=== PATIENT | male | born 1990 | race Asian ===

== ENCOUNTER 2025-01-26 05:17 | Inpatient (IN) | payer MEDICAID ==
[~2025-01-26] VITALS: Ht 177.8 cm; Wt 90.2 kg
[2025-01-26 05:59] LABS: BASOPHILS % (AUTO) 0.4 % (0.0-2.0); EOSINOPHILS % (AUTO) 8.2 % (1.0-6.0); HEMOGLOBIN 15.2 g/dL (13.5-17.5); LYMPHOCYTES # (AUTO) 1.7 K/uL (1.0-4.8); LYMPHOCYTES % (AUTO) 25.3 % (22.0-44.0); MEAN CORPUSCULAR HEMOGLOBIN 25.8 pg (26.0-34.0); MEAN CORPUSCULAR HGB CONC 32.3 G/dL (31.0-37.0); MEAN CORPUSCULAR VOLUME 80 fL (80-100); MONOCYTES # (AUTO) 0.6 K/uL (0.1-1.0); MONOCYTES % (AUTO) 8.3 % (2.0-9.0); NEUTROPHILS # (AUTO) 3.9 K/uL (1.8-7.7); NEUTROPHILS % (AUTO) 57.8 % (40.0-70.0); PLATELET COUNT (AUTO) 247 K/uL (150-450); RED BLOOD CELL COUNT(AUTO) 5.88 MIL/uL (4.50-5.90); RED CELL DISTRIBUTION WIDTH 14.7 % (11.5-14.5); WHITE BLOOD COUNT (AUTO) 6.7 K/uL (4.5-11.0)
[2025-01-26 06:13] LABS: ALBUMIN 3.4 g/dL (3.4-5.0); BILIRUBIN,DIRECT 0.1 mg/dL (0.00-0.20); BILIRUBIN,TOTAL 0.4 mg/dL (0.1-1.0); TOTAL PROTEIN, SERUM 6.8 g/dL (6.4-8.2)
[2025-01-26 06:21] LABS: ANION GAP 6 mmol/L (8-16); CALCIUM, TOTAL 8.4 mg/dL (8.8-10.5); CARBON DIOXIDE 30 mmol/L (22-29); CHLORIDE 104 mmol/L (98-107); CREATININE 1.08 mg/dL (0.60-1.30); GLOMERULAR FILTR. RATE CALC > 60 mL/min (>60); GLUCOSE,RANDOM 137 mg/dL (70-110); POTASSIUM 3.9 mmol/L (3.5-5.1); SODIUM SERUM 140 mmol/L (136-145); UREA NITROGEN, BLOOD 13 mg/dL (7-18)
[2025-01-26 06:22] LABS: LIPASE 145 U/L (16-77)
[2025-01-26 06:23] LABS: APPEARANCE,URINE CLEAR (CLEAR); BILIRUBIN,URINE NEGATIVE (NEGATIVE); COLOR,URINE LIGHT YELLOW (YELLOW); GLUCOSE, URINE (UA) NEGATIVE (NEGATIVE); KETONES,URINE NEGATIVE (NEGATIVE); LEUKOCYTE ESTERASE ,URINE NEGATIVE (NEGATIVE); NITRATE,URINE NEGATIVE (NEGATIVE); OCCULT BLOOD,URINE NEGATIVE (NEGATIVE); PH,URINE 5.5 (5.0-8.0); PROTEIN,URINE NEGATIVE (NEGATIVE); SPECIFIC GRAVITIY, URINE 1.028 (1.003-1.030); UROBILINOGEN,URINE <=1.0 mg/dL (<=1.0)
[2025-01-26 07:20] LABS: BACTERIA,URINE None Seen /HPF (None Seen); RBC,URINE None Seen /HPF (0-2); SQUAMOUS EPITHELIAL CELL,UR None Seen /LPF (None Seen); WBC,URINE None Seen /HPF (0-5)
[2025-01-26] MEDS: SODIUM CHLORIDE 0.9% 1,000 ML IV ONE ×2 (08:13→08:47)
[2025-01-26] MEDS: KETOROLAC TROMETHAMINE 30 MG/ML VIAL IVP ONE (08:14)
[2025-01-26] MEDS ORDERED: ONDANSETRON HCL 4 MG/2 ML VIAL IVP PRN (08:30)
[2025-01-26] MEDS ORDERED: MORPHINE SULFATE 2 MG/ML SYRINGE IVP PRN (08:30)
[2025-01-26] MEDS ORDERED: ACETAMINOPHEN 325 MG TABLET PO PRN (08:30)
[2025-01-26] MEDS: DOCUSATE SODIUM 100 MG CAPSULE PO SCH (08:36)
[2025-01-26] MEDS: PANTOPRAZOLE SODIUM 40 MG/VIAL IVP SCH (08:47)
[2025-01-26] MEDS ORDERED: IOHEXOL 350 MG/ML 100 ML VIAL ONE (09:08)
[2025-01-26] MEDS ORDERED: IOHEXOL 9 MG/ML 500 ML BOTTLE ONE ×2 (09:21→09:23)
[2025-01-26] MEDS: DIATRIZOATE MEGLU/SOD 660/100 MG/ML 120 ML BOTTLE PO ONE (09:37)
[2025-01-26] MEDS: IOHEXOL 9 MG/ML 500 ML BOTTLE PO ONE (09:39)
[2025-01-26 11:30] VITALS: BP 108/81; PULSE 65; RESP 19; TEMP 97.9; O2SAT 97; O2SAT 98
[2025-01-26 12:00] VITALS: BP 108/81; PULSE 65; RESP 19; TEMP 97.9; O2SAT 98
[2025-01-26 15:50] VITALS: BP 114/79; PULSE 70; RESP 19; TEMP 98; O2SAT 98
[2025-01-26 20:06] VITALS: BP 139/96; PULSE 68; RESP 19; TEMP 98.1; O2SAT 96
[2025-01-27 04:44] VITALS: BP 134/90; PULSE 59; RESP 18; TEMP 97.5; O2SAT 95
[2025-01-27 07:30] LABS: HEMATOCRIT 42.2 % (41-53); HEMOGLOBIN 13.6 g/dL (13.5-17.5); MEAN CORPUSCULAR HEMOGLOBIN 25.8 pg (26.0-34.0); MEAN CORPUSCULAR HGB CONC 32.3 G/dL (31.0-37.0); MEAN CORPUSCULAR VOLUME 80 fL (80-100); PLATELET COUNT (AUTO) 228 K/uL (150-450); RED BLOOD CELL COUNT(AUTO) 5.28 MIL/uL (4.50-5.90); RED CELL DISTRIBUTION WIDTH 14.9 % (11.5-14.5); WHITE BLOOD COUNT (AUTO) 6.1 K/uL (4.5-11.0)
[2025-01-27 07:48] LABS: ALANINE AMINOTRANSFERASE 46 U/L (12-78); ALBUMIN 3.2 g/dL (3.4-5.0); ALKALINE PHOSPHATASE 68 U/L (46-116); ANION GAP 6 mmol/L (8-16); ASPARTATE AMINOTRANSFERASE 34 U/L (15-37); BILIRUBIN,TOTAL 0.7 mg/dL (0.1-1.0); CALCIUM, TOTAL 8.5 mg/dL (8.8-10.5); CARBON DIOXIDE 26 mmol/L (22-29); CHLORIDE 106 mmol/L (98-107); CREATININE 0.95 mg/dL (0.60-1.30); GLOMERULAR FILTR. RATE CALC > 60 mL/min (>60); GLUCOSE,RANDOM 91 mg/dL (70-110); SODIUM SERUM 138 mmol/L (136-145); TOTAL PROTEIN, SERUM 6.3 g/dL (6.4-8.2); UREA NITROGEN, BLOOD 8 mg/dL (7-18)
[2025-01-27 08:09] VITALS: BP 120/79; PULSE 62; RESP 18; TEMP 97.9; O2SAT 96
[2025-01-27 09:00] LABS: BAND NEUTROPHILS % (MANUAL) 3 % (0-5); LYMPHOCYTES % (MANUAL) 31 % (22-44); MONOCYTES % (MANUAL) 4 % (2-9); SEGMENTED NEUTROPHILS % 62 % (40-70); TOTAL CELLS COUNTED 100
[2025-01-27 09:01] LABS: RBC MORPHOLOGY COMMENT NORMAL RBC MORPH
== END 2025-01-27 11:15 | disposition home or self-care (01) | DRG 282 ==
LOC: EMS 05:17 → EDH 08:20 → 6S 11:50
PROVIDERS: ADMIT Internal Medicine; ATTEND Internal Medicine
DX: K85.90 Acute pancreatitis without necrosis or infection, unspecified (principal); R18.8 Other ascites; K52.9 Noninfective gastroenteritis and colitis, unspecified; F10.10 Alcohol abuse, uncomplicated; F14.90 Cocaine use, unspecified, uncomplicated; F15.10 Other stimulant abuse, uncomplicated; Y90.1 Blood alcohol level of 20-39 mg/100 ml; Z82.49 Family history of ischemic heart disease and other diseases of the circulatory system; Z83.3 Family history of diabetes mellitus; Z88.2 Allergy status to sulfonamides; Z88.3 Allergy status to other anti-infective agents
CPT/HCPCS: 74176; 80048; 80053; 80076; 81001; 83690; 85025; 96361; 96374; 99285; G0378; G0480; J1885; J2470; J7030; 36415-L1; 36415-TC

== ENCOUNTER 2025-02-06 21:05 | Emergency (ER) | payer MEDICAID ==
[~2025-02-06] VITALS: Ht 177.8 cm; Wt 86.4 kg
[2025-02-07] MEDS: HYDROCODONE/ACETAMINOPHEN 5-325 MG TABLET PO ONE (01:29)
[2025-02-07] MEDS: IBUPROFEN 800 MG TABLET PO ONE (01:29)
[2025-02-07] MEDS: COLCHICINE 0.6 MG TABLET PO ONE ×2 (01:29→03:41)
[2025-02-07 01:53] LABS: BASOPHILS % (AUTO) 0.8 % (0.0-2.0); EOSINOPHILS % (AUTO) 12.7 % (1.0-6.0); HEMATOCRIT 42.8 % (41-53); HEMOGLOBIN 13.9 g/dL (13.5-17.5); LYMPHOCYTES # (AUTO) 1.9 K/uL (1.0-4.8); LYMPHOCYTES % (AUTO) 17.2 % (22.0-44.0); MEAN CORPUSCULAR HEMOGLOBIN 25.7 pg (26.0-34.0); MEAN CORPUSCULAR HGB CONC 32.6 G/dL (31.0-37.0); MEAN CORPUSCULAR VOLUME 79 fL (80-100); MONOCYTES # (AUTO) 0.8 K/uL (0.1-1.0); MONOCYTES % (AUTO) 7.6 % (2.0-9.0); NEUTROPHILS # (AUTO) 6.7 K/uL (1.8-7.7); NEUTROPHILS % (AUTO) 61.7 % (40.0-70.0); PLATELET COUNT (AUTO) 318 K/uL (150-450); RED BLOOD CELL COUNT(AUTO) 5.42 MIL/uL (4.50-5.90); RED CELL DISTRIBUTION WIDTH 14.5 % (11.5-14.5); WHITE BLOOD COUNT (AUTO) 10.9 K/uL (4.5-11.0)
[2025-02-07 01:59] LABS: ANION GAP 9 mmol/L (8-16); CARBON DIOXIDE 29 mmol/L (22-29); CHLORIDE 100 mmol/L (98-107); CREATININE 1.06 mg/dL (0.60-1.30); GLOMERULAR FILTR. RATE CALC > 60 mL/min (>60); GLUCOSE,RANDOM 95 mg/dL (70-110); POTASSIUM 3.9 mmol/L (3.5-5.1); SODIUM SERUM 138 mmol/L (136-145); UREA NITROGEN, BLOOD 10 mg/dL (7-18)
[2025-02-07 02:26] LABS: URIC ACID 8.9 mg/dL (2.6-7.2)
[2025-02-07] MEDS ORDERED: HYDR-4062 PO (02:49)
[2025-02-07] MEDS ORDERED: OMEP-148 PO (02:49)
[2025-02-07] MEDS ORDERED: IBUP-1554 PO (02:49)
[2025-02-07] MEDS ORDERED: COLC-3 PO (02:49)
[2025-02-07 03:51] VITALS: BP 129/69; PULSE 78; RESP 18; TEMP 97.3; O2SAT 98
== END 2025-02-07 04:48 | disposition home or self-care (01) ==
LOC: EMS 21:05
DX: M10.031 Idiopathic gout, right wrist (principal); Z88.1 Allergy status to other antibiotic agents; Z88.2 Allergy status to sulfonamides; Z79.899 Other long term (current) drug therapy
CPT/HCPCS: 80048; 84550; 85025; 99284

== ENCOUNTER 2025-02-12 07:55 | Emergency (ER) | payer MEDICAID ==
[~2025-02-12] VITALS: Ht 172.7 cm; Wt 81.8 kg
[~2025-02-12 07:55] MED LIST: COLC-3 PO; HYDR-4062 PO; IBUP-1554 PO; OMEP-148 PO
[2025-02-12 08:13] VITALS: TEMP 98.4
[2025-02-12 09:11] LABS: BASOPHILS % (AUTO) 0.5 % (0.0-2.0); EOSINOPHILS % (AUTO) 12.4 % (1.0-6.0); HEMOGLOBIN 14.9 g/dL (13.5-17.5); LYMPHOCYTES # (AUTO) 1.1 K/uL (1.0-4.8); LYMPHOCYTES % (AUTO) 19.1 % (22.0-44.0); MEAN CORPUSCULAR HEMOGLOBIN 25.5 pg (26.0-34.0); MEAN CORPUSCULAR HGB CONC 32.4 G/dL (31.0-37.0); MEAN CORPUSCULAR VOLUME 79 fL (80-100); MONOCYTES # (AUTO) 0.3 K/uL (0.1-1.0); MONOCYTES % (AUTO) 5.9 % (2.0-9.0); NEUTROPHILS # (AUTO) 3.5 K/uL (1.8-7.7); NEUTROPHILS % (AUTO) 62.1 % (40.0-70.0); PLATELET COUNT (AUTO) 373 K/uL (150-450); RED BLOOD CELL COUNT(AUTO) 5.84 MIL/uL (4.50-5.90); RED CELL DISTRIBUTION WIDTH 14.2 % (11.5-14.5); WHITE BLOOD COUNT (AUTO) 5.7 K/uL (4.5-11.0)
[2025-02-12 09:19] LABS: ANION GAP 9 mmol/L (8-16); CALCIUM, TOTAL 8.8 mg/dL (8.8-10.5); CARBON DIOXIDE 26 mmol/L (22-29); CHLORIDE 105 mmol/L (98-107); CREATININE 0.89 mg/dL (0.60-1.30); GLOMERULAR FILTR. RATE CALC > 60 mL/min (>60); GLUCOSE,RANDOM 109 mg/dL (70-110); POTASSIUM 4.1 mmol/L (3.5-5.1); SODIUM SERUM 140 mmol/L (136-145); UREA NITROGEN, BLOOD 14 mg/dL (7-18)
[2025-02-12 09:21] LABS: LIPASE 82 U/L (16-77); URIC ACID 8.4 mg/dL (2.6-7.2)
[2025-02-12 09:30] VITALS: BP 136/88; PULSE 69; RESP 16; O2SAT 98
[2025-02-12 09:42] LABS: APPEARANCE,URINE CLEAR (CLEAR); BILIRUBIN,URINE NEGATIVE (NEGATIVE); COLOR,URINE LIGHT YELLOW (YELLOW); GLUCOSE, URINE (UA) NEGATIVE (NEGATIVE); KETONES,URINE NEGATIVE (NEGATIVE); LEUKOCYTE ESTERASE ,URINE NEGATIVE (NEGATIVE); NITRATE,URINE NEGATIVE (NEGATIVE); OCCULT BLOOD,URINE NEGATIVE (NEGATIVE); PROTEIN,URINE NEGATIVE (NEGATIVE); UROBILINOGEN,URINE <=1.0 mg/dL (<=1.0)
[2025-02-12 09:47] LABS: RBC,URINE None Seen /HPF (0-2)
[2025-02-12 09:48] LABS: BACTERIA,URINE None Seen /HPF (None Seen); WBC,URINE None Seen /HPF (0-5)
[2025-02-12] MEDS ORDERED: OMEP-148 PO (09:52)
[2025-02-12] MEDS ORDERED: ALLO-45 PO (09:52)
== END 2025-02-12 10:04 | disposition home or self-care (01) ==
LOC: EMS 08:02
DX: R10.13 Epigastric pain (principal); M10.9 Gout, unspecified; Z88.1 Allergy status to other antibiotic agents; Z88.2 Allergy status to sulfonamides; Z79.899 Other long term (current) drug therapy
CPT/HCPCS: 80048; 81001; 83690; 84550; 85025; 99283